=== PATIENT | male | born 1975 | race Two or more races ===

== ENCOUNTER → 2017-08-06 | Emergency (ER) | payer SELFPAY ==
[~2017-08-06] VITALS: Ht 175.3 cm; Wt 83.9 kg
[2017-08-06 17:58] VITALS: BP 152/87
--- NOTE | 2017-08-06 17:58 | NUR ---
PT [facility] FROM A CLINIC. PER REPORT, WAS HAVING ASTHMA EXACERBATION S/P RAN OUT OF ALBUTEROL. PT WAS GIVEN BREATHING TREATMENT AND WAS FEELING BETTER. EXPIRATIORY WHEEZING NOTED. PT IS SATTING 100% ON RA. DENIES PAIN. AWAITING MD ANDERSON.
== END | disposition home or self-care (01) ==
LOC: ER 17:52
DX: J45.901 Unspecified asthma with (acute) exacerbation (principal)
CPT/HCPCS: 99283; A4606; Z7610